=== PATIENT | female | born 1975 | race African-American/Black ===

== ENCOUNTER 2018-01-14 21:53 | Emergency (ER) | payer OTHER ==
[~2018-01-14] VITALS: Ht 160 cm; Wt 68.0 kg
[2018-01-14] MEDS ORDERED: NKM (22:09)
--- NOTE | 2018-01-14 22:25 | Emergency Room Report ---
History of Present Illness General Chief Complaint: Foreign Body Source: Patient Present Illness [facility] This a 42-year-old female with no cerumen past medical history. She presents with chief complaint of left neck and throat pain. Onset was last night. She said she has a dental he swallowed a SIM card. She had in her mouth as she was picking up her little kid. And then her child moved and she actually swallowed it. No fever or chills. No nausea no vomiting. Worse with swallowing. No other injury. Allergies: Coded Allergies: No Known Allergies (Unverified , 01/14/18) Patient History Past Medical History: see triage record, old chart reviewed Past Surgical History: none Pertinent Family History: none Social History: Denies: smoking Last Menstrual Period: last month Now: No Immunizations: other Reviewed Nursing Documentation: PMH: Agreed; PSxH: Agreed Nursing Documentation-PMH Past Medical History: No Stated History Review of Systems Eye: Denies: eye pain, blurred vision ENT: Denies: ear pain, nose congestion, throat swelling Respiratory: Denies: cough, shortness of breath Cardiovascular: Denies: chest pain, palpitations Gastrointestinal: Denies: abdominal pain, diarrhea, nausea, vomiting Musculoskeletal: Denies: back pain, joint pain Skin: Denies: rash Neurological: Denies: headache, numbness Endocrine: Denies: increased thirst, increased urine Hematologic/Lymphatic: Denies: easy bruising All Other Systems: negative except mentioned in HPI Physical Exam Vital Signs Date Time Temp Pulse Resp B/P (MAP) Pulse Ox O2 Delivery O2 Flow Rate FiO2 01/14/18 22:01 98.1 86 18 159/91 96 Room Air 98.1 vitals with high blood pressure Sp02 EP Interpretation: reviewed, normal General Appearance: well appearing, no apparent distress, alert Head: normocephalic, atraumatic Eyes: bilateral eye PERRL, bilateral eye EOMI ENT: hearing grossly normal, normal pharynx Neck: full range of motion, supple, no meningismus Respiratory: chest non-tender, lungs clear, normal breath sounds Cardiovascular #1: regular rate, rhythm, no murmur Gastrointestinal: normal bowel sounds, non tender, no mass, no organomegaly, no bruit, non-distended Musculoskeletal: back normal, gait/station normal, normal range of motion Neurologic: alert, oriented x3 Psychiatric: mood/affect normal Skin: warm/dry Medical Decision Making Diagnostic Impression: Primary Impression: Swallowed foreign body Qualified Codes: T18.9XXA - Foreign body of alimentary tract, part unspecified , initial encounter ER Course Patient with throat pain for months swallow foreign body. Probably from a scratch. No evidence of foreign body in her throat. It's in her pelvic area already. No evidence of any obstruction. No evidence of any perforation. We' ll discharge home. Other X-Ray Diagnostic Results Other X-Ray Diagnostic Results #1: X-Ray ordered: KUB # of Views/Limited Vs Complete: 1 View Indication: Other - foreign body EP Interpretation: Yes Interpretation: no dislocation, no soft tissue swelling, no fractures, nonspecific bowel gas, other - foreign body in pelvic Impression: Other - FB Electronically Signed by: Abdon Urena MD Other X-Ray Diagnostic Results #2: X-Ray ordered: soft tissue neck # of Views/Limited Vs Complete: 3 View Indication: Pain EP Interpretation: Yes Interpretation: no dislocation, no soft tissue swelling, no fractures Impression: No acute disease Electronically Signed by: Abdon Urena MD Last Vital Signs Date Time Temp Pulse Resp B/P (MAP) Pulse Ox O2 Delivery O2 Flow Rate FiO2 01/14/18 22:01 98.1 86 18 159/91 96 Room Air 98.1 Status: improved Disposition: HOME, SELF-CARE Condition: Stable Patient Instructions: Swallowed Foreign Body, Adult Additional Instructions: Follow-up your doctor in 7 days. Return if symptom worsen. ABDON URENA M.D. January 14, 2018 22:25
[2018-01-14 23:11] VITALS: BP 159/91
--- NOTE | 2018-01-15 13:37 | Diagnostic Imaging Report ---
Indication: Foreign body Technique: XRAY Neck Soft Tissue Comparison: None Findings: Evaluate limited as patient did not remove shirt which contains multiple radiopaque circular structures. Within this limitation. No definite radiopaque foreign body identified. No definite prevertebral soft tissue abnormality. Imaged lung apices contrast or air cells and paranasal sinuses are grossly clear. No acute osseous abnormality seen. IMPRESSION: Limited exam as detailed above. This particularly limits evaluation for foreign body in the lower airway/upper chest. Within these limitations: No definite radiopaque foreign body identified. No definite prevertebral soft tissue abnormality.
--- NOTE | 2018-01-15 13:46 | Diagnostic Imaging Report ---
Indication: Foreign body Technique: XRAY Abdomen 1v Comparison: None Findings: A square-shaped foreign body is noted projecting over the right sacral wing. There is no associated bowel obstruction. No evidence of free intraperitoneal air. No acute osseous abnormality seen. Imaged lung bases are clear. Circular radiodensities projecting over the lower chest are likely external to the patient given findings of concurrent neck radiograph. IMPRESSION: Square-shaped approximately 1.4 cm foreign body projecting over the region of the right sacral wing. This may correspond with the given history of ingested foreign body. No associated bowel obstruction or evidence of free intraperitoneal air. Clinical correlation and follow-up radiograph recommended to assure passage. This corresponds with the preliminary interpretation of the treating ER physician, as documented in the electronic medical record.
== END 2018-01-14 23:11 | disposition home or self-care (01) ==
LOC: EDSEX 21:53 → EMR 22:19
DX: T18.9XXA Foreign body of alimentary tract, part unspecified, initial encounter (principal); X58.XXXA Exposure to other specified factors, initial encounter; Y92.9 Unspecified place or not applicable; R51 Headache
CPT/HCPCS: 70360; 74018; 81025; 99284